=== PATIENT | male | born 1985 | race Caucasian/White ===

== ENCOUNTER 2020-02-03 01:08 | Emergency (ER) | payer OTHER, BC ==
[~2020-02-03] VITALS: Ht 185.4 cm; Wt 104.6 kg
--- NOTE | 2020-02-03 01:19 | PHYS DOC ---
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 mid and lower quadrants. Pt. pain started at approximately 1600 after eating crock pot chicken. No one else became ill to eating chicken. No family member s sick . Has had some past history of elevated blood pressure readings. No history of colitis with him or family members. No history of renal stones with him or family members. The pt. follows with Dr. Chen. No history of trauma. No recent travel outside [facility]. No specific ill contacts, pets or animal. Is on [facility] water source. Review of Systems: Review of Systems: Constitutional: Denies fever or chills Eyes: Denies change in visual acuity HENT: Denies nasal congestion or sore throat Respiratory: Denies cough or shortness of breath Cardiovascular: Denies chest pain or edema GI: Complaints of abdominal pain, nausea,. Denies vomiting, bloody stools . One episode of diarrhea : Denies dysuria Musculoskeletal: Denies back pain or joint pain Integument: Denies rash Neurologic: Denies headache, focal weakness or sensory changes Endocrine: Denies polyuria or polydipsia Lymphatic: Denies swollen glands Psychiatric: Denies depression or anxiety Heart Score: HEART Score for Chest Pain: HEART Score for Chest Pain Response (Comments) Value History Slighlty/Non-Suspicious 0 ECG Normal 0 Age < 45 0 Risk Factors No Risk Factors 0 Troponin < Normal Limit 0 Total 0 Risk Factors: Risk Factors: DM, Current or recent (<one month) smoker, HTN, HLP, family history of CAD, obesity. Risk Scores: Score 0 - 3: 2.5% MACE over next 6 weeks - Discharge Home Score 4 - 6: 20.3% MACE over next 6 weeks - Admit for Clinical Observation Score 7 - 10: 72.7% MACE over next 6 weeks - Early Invasive Strategies Family History: Family History: Noncontributory to presentation Current Medications: Current Meds: See nursing for home meds Allergies: Allergies: No known drug allergies Physical Exam: PE: Constitutional: Well developed, well nourished, moderate distress, non-toxic appearance. [] HENT: Normocephalic, atraumatic, bilateral external ears normal, oropharynx moist, no oral exudates, nose normal. [] Eyes: PERRLA, EOMI, conjunctiva normal, no discharge. [] Neck: Normal range of motion, no tenderness, supple, no stridor. [] Cardiovascular:Heart rate regular rhythm, no murmur [] Lungs & Thorax: Bilateral breath sounds clear to auscultation [] Abdomen: Bowel sounds normal, guarding on right mid and lower abdomen, rebound tenderness to the right lower abdomen, no masses, no pulsatile masses. Circumcised male. Testicles descended. Skin: Warm, dry, no erythema, no rash. [] Back: No tenderness, no CVA tenderness. [] Extremities: No tenderness, no cyanosis, no clubbing, ROM intact, no edema. Mild psoas sign on heeltap on right. Neurologic: Alert and oriented X 3, normal motor function, normal sensory function, no focal deficits noted. [] Psychologic: Affect anxious , judgement normal, mood normal. [] EKG: EKG: My interpretation EKG shows a sinus rhythm at 64 bpm. No acute pathology [] Radiology/Procedures: Radiology/Procedures: [][place] [address] IMAGING REPORT Signed PATIENT: APURVA BENNETT ACCOUNT: [id number] : 1985 LOCATION: ER AGE: 34 SEX: M EXAM STATUS: REG ER ORD. PHYSICIAN: SARAH AG MD REASON: pain rt. mid/lower, OMNI 300, 75ml & OMNI 240, 30ml PROCEDURE: CT ABD PELV W/ORAL&IV CONTRAST CT abdomen and pelvis with contrast PQRS statement: CT scans at this facility use dose reduction including either automated exposure control, iterative reconstructions, and /or weight based radiation dosing via mA and kV modification when appropriate to reduce radiation dose to as low as reasonably achievable. Contrast: 75 mL Omnipaque 350 intravenous contrast HISTORY: Abdominal pain right side, lower abdominal pain, nausea. Abdomen findings: Mild dependent lower lobe atelectasis. Thoracic and lumbar disc disease. Liver, gallbladder, spleen, small accessory spleen, pancreas, adrenal glands and kidneys are unremarkable. Acute appendicitis appendix extends inferior of the cecum with dilation with a diameter of up to 11 mm with wall thickening and surrounding edema, no abscess evident. No abdominal fluid or adenopathy. Lung bases unremarkable. Pelvis findings: No pelvic fluid or adenopathy. Bladder, prostate, rectum and bones are unremarkable. IMPRESSION: Acute appendicitis as described above. Electronically signed by: Shira Hines MD (02/03/2020 4:11 AM) [facility] [place] AND SIGNED BY: SHIRA HINES MD DATE: 02/03/20 041 CC: SARAH AG MD; LORETTA CHEN MD ~ [place] [address] IMAGING REPORT Signed PATIENT: APURVA BENNETT ACCOUNT: [id number] : 1985 LOCATION: ER AGE: 34 SEX: M EXAM STATUS: REG ER ORD. PHYSICIAN: SARAH AG MD REASON: pain PROCEDURE: ACUTE ABDOMEN SERIES PA chest and AP upright supine abdomen x-rays HISTORY: Pain. FINDINGS: Heart and mediastinum are normal. No pneumoperitoneum. No pulmonary opacities or pleural effusions. No pneumothorax. There is a mild volume of stool within the large bowel. No bowel obstruction evident. Bones and soft tissues are unremarkable. IMPRESSION: No acute process in the chest. No bowel obstruction evident. Electronically signed by: Shira Hines MD (02/03/2020 2:29 AM) [facility] [place] AND SIGNED BY: SHIRA HINES MD DATE: 02/03/20228 CC: SARAH AG MD; LORETTA CHEN MD ~ Course & Med Decision Making: Course & Med Decision Making Pertinent Labs and Imaging studies reviewed. (See chart for details). No hematuria, kidney stone unlikely.- Will start pt. on Rocephin and Flagy- since it appears he has an acute surgical issue - Most likely acute appendicitis. CT Abd. pending. Discussed presentation, testing and treatment plan with Dr. Flores - Transfer DrAnnie at [facility] and Dr. Gallegos- Surgery. Pt. to be transfer to [facility]- ( most likely - [address] Location- dependent on bed space). Pt. will have to go to the ED for Rapid COVID Testing since we do not have it here at [facility]. Impression: 1. Abdomen Pain 2. Acute Appendicitis 3. Leukocytosis 11.5 4. Mild Hypokalemia. 3.2 [] Vinicio Disclaimer: Vinicio Disclaimer: This electronic medical record was generated, in whole or in part, using a voice recognition dictation system. Departure Departure: Disposition: HOME/RESIDENCE PRIOR TO ADM Condition: STABLE Referrals: LORETTA CHEN MD (PCP) Vinicio Disclaimer This chart was dictated in whole or in part using Voice Recognition software in a busy, high-work load, and often noisy Emergency Department environment. It may contain unintended and wholly unrecognized errors or omissions. SARAH AG MD Feb 03, 2020 01:19
[2020-02-03] MEDS ORDERED: IV RINGERS SOLUTION,LACTATED 1,000 ML IV SCH (01:55)
[2020-02-03] MEDS ORDERED: FAMOTIDINE 20 MG/2 ML VIAL IVP ONE (02:00)
[2020-02-03] MEDS ORDERED: ONDANSETRON PF 4 MG/2 ML VIAL. IVP ONE (02:00)
[2020-02-03] MEDS ORDERED: KETOROLAC 30 MG/ML VIAL. IVP ONE (02:00)
[2020-02-03 02:11] LABS: BASO # 0.1 x10^3/uL (0.0-0.2); BASO % 1 % (0-3); EOS # 0.1 x10^3/uL (0.0-0.7); EOS % 1 % (0-3); HEMATOCRIT 43.9 % (39.0-53.0); HEMOGLOBIN 14.7 g/dL (13.0-17.5); LYMPH % 17 % (24-48); MEAN CORPUSCULAR HEMOGLOBIN 29 pg (25-35); MEAN CORPUSCULAR HGB CONC 34 g/dL (31-37); MEAN CORPUSCULAR VOLUME 85 fL (79-100); MONO # 1.1 x10^3/uL (0.0-1.1); MONO % 10 % (0-9); NEUT # 8.2 x10^3uL (1.8-7.7); NEUT % 71 % (31-73); PLATELET COUNT 256 x10^3/uL (140-400); RED BLOOD COUNT 5.18 x10^6/uL (4.30-5.70); RED CELL DISTRIBUTION WIDTH 14.2 % (11.5-14.5); WHITE BLOOD COUNT 11.5 x10^3/uL (4.0-11.0)
[2020-02-03 02:14] LABS: CREATININE 1.3 mg/dL (0.7-1.3); POTASSIUM 3.2 mmol/L (3.5-5.1)
[2020-02-03 02:20] LABS: BACTERIA,URINE 0 /HPF (0-FEW); BILIRUBIN,URINE NEG (NEG); CLARITY,URINE CLEAR; COLOR,URINE YELLOW; GLUCOSE,URINE NEG (NEG); NITRITE,URINE NEG (NEG); RBC,URINE 0 /HPF (0-2); SQUAMOUS EPITHELIAL CELL,UR OCC /LPF; UROBILINOGEN,URINE 0.2 mg/dL (0.2 mg/dL); WBC,URINE OCC /HPF (0-4)
[2020-02-03 02:21] LABS: ALBUMIN 4.1 g/dL (3.4-5.0); DIRECT BILIRUBIN 0.1 mg/dL (0.0-0.2); TOTAL BILIRUBIN 0.4 mg/dL (0.2-1.0); TOTAL PROTEIN 7.7 g/dL (6.4-8.2)
--- NOTE | 2020-02-03 02:31 | RAD ---
PA chest and AP upright supine abdomen x-rays HISTORY: Pain. FINDINGS: Heart and mediastinum are normal. No pneumoperitoneum. No pulmonary opacities or pleural effusions. No pneumothorax. There is a mild volume of stool within the large bowel. No bowel obstruction evident. Bones and soft tissues are unremarkable. IMPRESSION: No acute process in the chest. No bowel obstruction evident. Electronically signed by: Cain Hines MD (02/03/2020 2:29 AM) [facility]
[2020-02-03] MEDS ORDERED: IOHEXOL 240 MG/ML 50ML VIAL. PO ONE (03:00)
[2020-02-03] MEDS ORDERED: IOHEXOL 300 MG/ML 75 ML VIAL. IV ONE (03:00)
[2020-02-03] MEDS ORDERED: CONTRAST GIVEN. MC PRN (03:00)
--- NOTE | 2020-02-03 04:14 | RAD ---
CT abdomen and pelvis with contrast PQRS statement: CT scans at this facility use dose reduction including either automated exposure control, iterative reconstructions, and /or weight based radiation dosing via mA and kV modification when appropriate to reduce radiation dose to as low as reasonably achievable. Contrast: 75 mL Omnipaque 350 intravenous contrast HISTORY: Abdominal pain right side, lower abdominal pain, nausea. Abdomen findings: Mild dependent lower lobe atelectasis. Thoracic and lumbar disc disease. Liver, gallbladder, spleen, small accessory spleen, pancreas, adrenal glands and kidneys are unremarkable. Acute appendicitis appendix extends inferior of the cecum with dilation with a diameter of up to 11 mm with wall thickening and surrounding edema, no abscess evident. No abdominal fluid or adenopathy. Lung bases unremarkable. Pelvis findings: No pelvic fluid or adenopathy. Bladder, prostate, rectum and bones are unremarkable. IMPRESSION: Acute appendicitis as described above. Electronically signed by: Cain Hines MD (02/03/2020 4:11 AM) [facility]
[2020-02-03] MEDS ORDERED: IV NORMAL SALINE 50ML 50 ML ONE (04:32)
[2020-02-03] MEDS ORDERED: cefTRIAXone SODIUM 1 GM VIAL ONE (04:32)
[2020-02-03 05:40] VITALS: BP 141/83
--- NOTE | 2020-02-03 06:27 | EKG ---
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
== END 2020-02-03 05:45 | disposition short-term general hospital (02) ==
LOC: ER 01:08
DX: K35.80 Unspecified acute appendicitis (principal); D72.829 Elevated white blood cell count, unspecified; E78.6 Lipoprotein deficiency; R19.7 Diarrhea, unspecified; I10 Essential (primary) hypertension
CPT/HCPCS: 36415; 74022; 74177; 80048; 80076; 81001; 82150; 83605; 83690; 84484; 85025; 85610; 85730; 93005; 96361; 96365; 96367; 96375; 99285; J0696; J1885; J2405; J3490; J7120; Q9966; Q9967

== ENCOUNTER 2021-06-13 09:08 | Emergency (ER) | payer OTHER ==
[~2021-06-13] VITALS: Ht 185.4 cm; Wt 105.5 kg
[2021-06-13 09:20] VITALS: BP 170/88
--- NOTE | 2021-06-13 09:41 | PHYS DOC ---
Past History Past Medical History: Hypertension Past Surgical History: Appendectomy, Tonsillectomy Alcohol Use: Occasionally Adult General Chief Complaint Chief Complaint: OTHER COMPLAINTS HPI HPI Patient is a 36-year-old male presenting for workplace injury. He cannot disclose what happened. He is here at request of work, no injury to person reported, here requesting blood alcohol and drug tox screen only. States he is otherwise healthy and takes no medical issues. Review of Systems Review of Systems Fourteen body systems of review of systems have been reviewed. See HPI for pertinent positives and negative responses, other alas all other systems are negative, non-pertinent or non-contributory Allergies Allergies Allergies Coded Allergies Type Severity Reaction Last Updated Verified No Known Allergies Allergy Unknown 02/03/20 Yes Physical Exam Physical Exam Constitutional: Well developed, well nourished, no acute distress, non-toxic appearance. HENT: Normocephalic, atraumatic, bilateral external ears normal, oropharynx moist, no oral exudates, nose normal. Eyes: PERRLA, EOMI, conjunctiva normal, no discharge. Neck: Normal range of motion, no tenderness, supple, no stridor. Cardiovascular: Heart rate regular, sinus rhythm, no murmurs rubs or gallops Lungs & Thorax: Bilateral breath sounds clear to auscultation Abdomen: Bowel sounds normal, soft, no tenderness, no masses, no pulsatile masses. Nonsurgical abdomen, no peritoneal signs Skin: Warm, dry, no erythema, no rash. Back: No tenderness, no CVA tenderness. Extremities: No tenderness, no cyanosis, no clubbing, ROM intact, no edema. Neurologic: Alert and oriented X 3, grossly normal motor & sensory function, no focal deficits noted. Psychologic: Affect normal, judgement normal, mood normal. Current Patient Data Vital Signs Vital Signs Date Time Temp Pulse Resp B/P (MAP) Pulse Ox O2 Delivery O2 Flow Rate FiO2 06/13/21 09:20 98.1 84 16 170/88 (115) 98 Lab Results Laboratory Tests Test 06/13/21 09:38 Urine Opiates Screen Neg Urine Methadone Screen Neg Urine Barbiturates Neg Urine Phencyclidine Screen Neg Urine Amphetamine/Methamphetamine Neg Urine Benzodiazepines Screen Neg Urine Cocaine Screen Neg Urine Cannabinoids Screen Neg Ethyl Alcohol Level < 10 mg/dL Urine Ethyl Alcohol Neg EKG EKG [] Radiology/Procedures Radiology/Procedures [] Heart Score C/O Chest Pain: No Risk Factors: Risk Factors: DM, Current or recent (<one month) smoker, HTN, HLP, family history of CAD, obesity. Risk Scores: Risk Factors: DM, Current or recent (<one month) smoker, HTN, HLP, family history of CAD, obesity. Course & Med Decision Making Course & Med Decision Making ABCs unremarkable except slight asymptomatic hypertension for which patient re ports he is slightly nervous being in ER Urine drug screen and blood alcohol labs drawn. Report procedures for workplace related incident followed. HR contacted regarding patient and will be in contact to disclose lab findings as appropriate Strict return precautions discussed with patient prior to ER departure, all questions and concerns addressed prior to departure Dragon Disclaimer Dragon Disclaimer This electronic medical record was generated, in whole or in part, using a voice recognition dictation system. Departure Departure: Impression: Primary Impression: Accident at workplace Disposition: 01 HOME / SELF CARE / HOMELESS Condition: STABLE Referrals: LORETTA CHEN MD (PCP) TRISTAN FLOYD DO Jun 13, 2021 09:41
[2021-06-13 10:13] LABS: BARBITURATES NEG (NEG); BENZODIAZEPINES NEG (NEG); CANNABINOIDS NEG (NEG); COCAINE NEG (NEG); METHADONE NEG (NEG); OPIATES NEG (NEG); PHENCYCLIDINE NEG (NEG)
[2021-06-13 10:17] LABS: AMPHETAMINE/METHAMPHETAMINE NEG (NEG)
== END 2021-06-13 09:40 | disposition home or self-care (01) ==
LOC: ER 09:08
DX: Z04.2 Encounter for examination and observation following work accident (principal); I10 Essential (primary) hypertension
CPT/HCPCS: 36415; 80307; 99283; G0480